=== PATIENT | male | born 1955 | race Caucasian/White ===

== ENCOUNTER 2022-05-30 07:47 | Outpatient (REF) | payer MEDICARE, MEDICAID, SELFPAY | END 2022-05-30 07:48 | disposition home or self-care (01) | LOC: HO.SH 07:47 | PROVIDERS: Visit Provider Internal Medicine | DX: Z01.118 Encounter for examination of ears and hearing with other abnormal findings (principal); H90.3 Sensorineural hearing loss, bilateral; H69.93 Unspecified Eustachian tube disorder, bilateral | CPT/HCPCS: 92557; 92567 ==

== ENCOUNTER 2022-11-27 07:44 | Outpatient (REF) | payer MEDICARE, MEDICAID, SELFPAY ==
--- NOTE | 2022-11-27 11:24 | MHC.AU.HA1 ---
Hearing Aid Evaluation Date of Visit: 11/27/22 Historical Information: Description of Hearing: Right Ear: Mild to moderate sensorineural hearing loss Left Ear: Moderate to moderately-severe sensorineural hearing loss Summary: Kelechi was evaluated for his asymmetric hearing loss at the [facility]. He had an MRI with no significant findings and medical clearance was provided for hearing aids. Kelechi has noticed difficulty hearing for several years now with a difference between his ears for about three years. He is motivated to wear and use hearing aids to help ease some communication difficulties. Kelechi opted for a RITE, rechargeable hearing aid that is compatible with his Android cellphone. Will start with domes; however, discussed option to add custom ear mold in future if needed. Hearing Aid Prescription: Based on the individual?s shared listening needs, communication environments, dexterity, desire for connectivity, and personal preferences, the following prescription for amplification has been made: Right ear: Make, Model, Color: Phonak Audeo L70-R Color: Champagne Battery Size: Rechargeable Furniture Cleaner/Slim Tube: 2M Type of Earmold/Dome/CShell/SlimTip: Small open dome Left ear: Left ear prescription to be same as Right Hearing Aid above: Make, Model, Color: Phonak Audeo L70-R Color: Champagne Battery Size: Rechargeable Furniture Cleaner/Slim Tube: 2M Type of Earmold/Dome/CShell/SlimTip: Small power dome Plan of Care: Patient wishes to purchase hearing aids as prescribed Action Taken/Action Needed: Hearing Instrument Fitting to be scheduled when materials arrive Primary Diagnosis: H90.3 Bilateral Sensorineural Hearing Loss Signature: Provider: Carlos Caro, [facility]
== END 2022-11-27 07:45 | disposition home or self-care (01) ==
LOC: HO.HAP 07:44
PROVIDERS: Visit Provider Internal Medicine
DX: Z46.1 Encounter for fitting and adjustment of hearing aid (principal); H90.3 Sensorineural hearing loss, bilateral
CPT/HCPCS: 92591

== ENCOUNTER 2023-01-21 14:06 | Outpatient (REF) | payer MEDICARE, MEDICAID, SELFPAY ==
--- NOTE | 2023-01-21 15:28 | MHC.AU.HA2 ---
Hearing Instrument Fitting- Adult- Binaural Date of Visit: 01/21/23 Hearing Instruments Dispensed: Right Ear: Make, Model, Color, Serial Number: Good Mcgill L70-R SN: [id number] Color: Nedagne [employer] Specialist Repair Warranty: 02/25/2028 Automotive Parts Specialist Loss and Damage Warranty: 02/25/2028 [facility] Service Plan: 01/22/2024 Battery Size: Rechargeable Brush Fabrication Supervisor/Slim Tube: 2M Earmold/Dome/CShell/SlimTip: Medium open dome with retention tail Type of Wax Guard: CeruShield Left Ear: Make, Model, Color, Serial Number: Good Simmonso L70-R SN: [id number] Color: Emilianae [employer] Specialist Repair Warranty: 02/25/2028 [employer] Specialist Loss and Damage Warranty: 02/25/2028 [facility] Service Plan: 01/22/2024 Battery Size: Rechargeable Brush Fabrication Supervisor/Slim Tube: 2M Earmold/Dome/CShell/SlimTip: Small power dome with retention tail Type of Wax Guard: CeruShield Accessories/Assistive Technology: Phonak Workplace Relations Adviser Ease SN: [id number] Summary of Fitting: Ran feedback analyzer and real ear measures. Comfortable at real ear settings. Discussed care and use including rechargeability, manually turning on/off and changing domes and wax guards. Practiced insertion and removal. Explained importance of consistent use in acclimating to the hearing aids. Did not discuss bluetooth or pair to cell phone at this time - will do at follow up if Kelechi is interested. Recommendations: A hearing instrument follow-up was scheduled. Diagnosis Code(s): Primary Diagnosis: H90.3 Bilateral Sensorineural Hearing Loss Signature: Provider: Carlos Caro, [facility]
== END 2023-01-21 14:07 | disposition home or self-care (01) ==
LOC: HO.HAP 14:06
PROVIDERS: Visit Provider Internal Medicine
DX: Z46.1 Encounter for fitting and adjustment of hearing aid (principal); H90.3 Sensorineural hearing loss, bilateral
CPT/HCPCS: V5011; V5020; V5160; V5261

== ENCOUNTER 2023-03-25 08:44 | Outpatient (REF) | payer MEDICARE, MEDICAID, SELFPAY ==
--- NOTE | 2023-03-26 09:42 | MHC.AU.HA3 ---
Hearing Instrument Follow-Up- Binaural Date of Visit: 03/25/23 Right Ear: Model David, Color, Serial Number: Good Mcgill L70-R SN: [id number] Color: Daksha Commis Chef Repair Warranty: 02/25/2028 Commis Chef Loss and Damage Warranty: 02/25/2028 [facility] Service Plan: 01/22/2024 Battery Size: Rechargeable Warehouse Team Member/Slim Tube: 2M Earmold/Dome/CShell/SlimTip:Medium open dome with retention tail Type of Wax Guard: CeruShield Dispensed By: [facility] Date of Fittin01/21/2023 Left Ear: Model David, Color, Serial Number: Good Mcgill L70-R SN: [id number] Color: Daksha Commis Chef Repair Warranty: 02/25/2028 Commis Chef Loss and Damage Warranty: 02/25/2028 [facility] Service Plan: 01/22/2024 Battery Size: Rechargeable Warehouse Team Member/Slim Tube: 2M Earmold/Dome/CShell/SlimTip: Small power dome with retention tail Type of Wax Guard: CeruShield Dispensed By: [facility] Date of Fittin01/21/2023 Follow-Up Summary: Kelechi was accompanied by his sister, Violet. Kelechi reported that he was only able to wear his hearing aids for about one week then his youth corrections officer stopped working. During that week, he noticed significant benefit from the hearing aids reporting that television volume was lower and he could hear everything. However, then his hearing aids stopped charging. Kelechi brought his youth corrections officer and cord (did not bring wall plug) and was able to confirm his youth corrections officer was not working in office. The cord he had, however, was not the cord he was provided at the fitting. Regardless, even with proper cord and wall plug from stock, his youth corrections officer would still not work. The hearing aids were able to charge on loaner youth corrections officer. Provided a loaner youth corrections officer, cord, and wall plug. Advised to use cord and wall plug that are provided with the youth corrections officer. Gave Kelechi his cord back as well. [facility] Also reviewed changing wax guards at Kelechi's request as he was insistent that he was never instructed on their use. Recommendations: Patient will be contacted when materials have arrived. Recommendations (Other): When his youth corrections officer returns from repair, he can pick it up (no appointment necessary). He will need to return the loaner youth corrections officer, cord, and wall plug. Diagnosis Code(s): Primary Diagnosis: H90.3 Bilateral Sensorineural Hearing Loss Signature: Provider: Carlos Caro, [facility]
== END 2023-03-25 08:45 | disposition home or self-care (01) ==
LOC: HO.HAP 08:44
PROVIDERS: Visit Provider Internal Medicine
DX: Z13.89 Encounter for screening for other disorder (principal)